=== PATIENT | female | born 1955 | race Caucasian/White ===

== ENCOUNTER → 2017-01-23 | Day surgery (SDC) | payer BC, OTHER ==
[~2017-01-23] MED LIST: ACETAMINOPHEN 1000 MG/100 ML VIAL IV ONE; BUPIVACAINE/EPINEPHRINE 0.5% PF 30 ML VIAL ONE; ISOSULFAN BLUE 50 MG/5 ML VIAL SQ ONE; LACTATED RINGER'S 1000 ML INJ 1,000 ML ONE; LIDOCAINE 1%/EPINEPHrine 1:100,000 SOLN 20 ML VIAL ONE; MIDAZOLAM HCL 2 MG/2 ML VIAL ONE; ONDANSETRON HCL 4 MG/2 ML VIAL IV PUSH ONE; PROPOFOL 200 MG/20 ML AMP IV ONE; ceFAZolin 2 GM PREMIX 50 ML ONE; ceFAZolin INJ 1,000 MG VIAL ONE
--- NOTE | 2017-01-23 17:43 | TN ---
cc: REBECA YUSUF MD, JOSEPH D. M.D. DATE OF SURGERY 01/23/2017 PREOPERATIVE DIAGNOSIS Left-sided breast cancer central quadrant. POSTOPERATIVE DIAGNOSIS Left-sided breast cancer central quadrant. PROCEDURES PERFORMED 1. Injection of Lymphazurin blue dye for lymphatic mapping left breast. 2. Needle-localized central quadrantectomy for clear margins for breast cancer. 3. Yeoman node identification of two sentinel nodes, number one ex vivo is 251; second one of 1700 and none were blue. 4. Some axillary heidy tissue and a third sentinel node with an ex vivo count of 54. 5. Application of intraoperative radiation device number 4 with intraoperative radiation. 6. Ultrasound confirmation of adequate tissue margins for intraoperative radiation. ANESTHESIA General. SURGEON Dr. Lindo. ROLLWAY WORKER PHAM [employer]onsec[employer] The SHEET METAL ASSEMBLER was present from beginning to the end of the case assisting in all portions of the procedure. It was necessary to have this individual in the room to assist in the above surgical procedure. The surgical procedure was assisted by the SHEET METAL ASSEMBLER. The SHEET METAL ASSEMBLER presence was necessary throughout the case for appropriate retraction, dissection, visualization, and resection of the important anatomical structures during the surgical procedure. The SHEET METAL ASSEMBLER was assisting throughout the entirety of the operation. The skill set of the SHEET METAL ASSEMBLER is medically and surgically necessary to safely complete the surgical procedure. During the surgical case, the operating room surgical garment fitter was working instrument table and passing instruments to the attending surgeon and SHEET METAL ASSEMBLER. The SHEET METAL ASSEMBLER was directly assisting the operating surgeon and involved in the technical aspects of the surgical case. INDICATIONS This is a pleasant female who is found to have a left-sided breast cancer. Plans were made for above. PROCEDURE DETAILS The patient taken to the operating room and placed in the supine position. After anesthesia, time-out was performed. The guidewire had been previously placed by radiology coursing from the 9 o'clock position going medial to lateral to the tip just underneath deep to the nipple-areolar complex. Because of the course of the guidewire it was felt that the nipple-areolar complex approach would result in adequate margins and cosmesis. We inject 6 mL of Lymphazurin blue dye along the course of needle track satnam. We then first identify, after prepping and draping, a hot spot in the axillary region. A curvilinear incision was made and we dissect down to the axillary region identifying two or actually three lymph nodes during the sentinel node identification. The first one with an ex vivo count of 251 which was not blue, a second one with 1700 which was not blue, and a lymph node with an ex vivo count of 54, no blue. There is some thickened axillary tissue that is removed as well. This is specimen three. After this was done no other counts were noted. No other blue nodes and no other lymphadenopathy is noted. The area is irrigated. Hemostasis assured. We then close the deep layer with 3-0 Vicryl. Skin with 4-0 Vicryl. We then we direct our attention to the breast on the left side. A curvilinear incision is made from approximately 10 o'clock position to the 7 o'clock position along the nipple-areolar complex in a curvilinear layer fashion. We dissect just about 0.5 cm under the skin, medially approximately 3 cm to the where the guidewire was coursing in the skin. It is clipped at the skin and then we dissect inferiorly and posteriorly and superiorly to dissect the guidewire off the breast tissue and then come wider near the edge of the wire to remove the specimen. It is marked superiorly with a short stitch and a long stitch placed laterally. Again the tip of the guidewire courses just in the middle of the breast posterior to the nipple-areolar complex somewhat in the central portion of the breast. Once this area was removed we labeled it with a short stitch placed superiorly, and a long stitch placed laterally. The tip of the guidewire it felt that had adequate margins, to just be assured I take some more tissue along the lateral margin and label it as such with a short stitch superiorly and long stitch laterally for orientation for the pathologist. After this was done we send this down and radiology states the guidewire clip and the area in question appears to have been removed. We then sized the cavity and feel that the number 4 intraoperative radiation therapy device will fit. This is confirmed with ultrasound to confirm adequate tissue margins at the anterior edge, superior, inferior and lateral. The medial was somewhat difficult because approaches from medial to lateral was the radiation therapy device. After preliminary evaluation with ultrasound seeing that this seems to be an adequate fit, this device was then connected to the radiation therapy device and draped sterilely. It was then placed in the breast cavity. Previously a pursestring suture was placed approximately 0.5 cm under the skin and this is brought up and tied in a pursestring fashion around the radiation therapy device. We then confirmed again with ultrasound adequate tissue margins circumferentially with no air pockets. Then Dr. Buck does the radiation therapy after we had placed the drapes and the lead protective gear over the radiation device. After adequate radiation therapy as directed by Dr. Buck, the radiation therapy device is removed and the sutures removed. The breast cavity is then irrigated, hemostasis assured. We close the deep layer with a 3-0 Vicryl and the skin is closed with a running 4-0 Vicryl. Steri-Strips were applied. Sterile bandage applied. The patient tolerated the procedure well and had no immediate postop complications. Osbaldo Lindo MD JDB/[id number] /5:05 PM /5:20 PM MTDSami
--- NOTE | 2017-01-25 09:25 | RADONCENDT ---
END OF TREATMENT SUMMARY PRIMARY REFERRING PHYSICIAN: Osbaldo Lindo CC: Osbaldo Lindo DIAGNOSIS: Primary C50.812 - Malignant neoplasm of overlapping sites of left female breast, Diagnosed 01/11/2017 (Active) PRESCRIPTION AND TREATMENT: 2000 cGy to surface of applicator- TREATED PLAN FRACTIONS AND DATES: Course: One fraction delivered on 01/24/2017 TOLERANCE: Patient completed treatment without complications. FOLLOW UP PLAN: Patient to be seen in 6 weeks. Luigi Griggs MD 01/25/2017 9:25:17 AM This report was verified and signed electronically [facility] [address] [facility] [place] [address] RADIATION ONCOLOGY END OF TREATMENT SUMMARY Date: 01/23/2017 Patient Name: Jennie Montanez Date of : 1955 Age: 61 Sex: Female
--- NOTE | 2017-01-25 09:25 | RADONCOP ---
OPERATIVE REPORT DATE OF SURGERY: 01/24/2017 REFERRING PHYSICIAN: Osbaldo Lindo PREOPERATIVE DIAGNOSIS: C50.812 - Malignant neoplasm of overlapping sites of left female breast, Diagnosed 01/11/2017 (Active) POSTOPERATIVE DIAGNOSIS: C50.812 - Malignant neoplasm of overlapping sites of left female breast, Diagnosed 01/11/2017 (Active) PROCEDURE: Intraoperative Radiation Therapy to the . SURGEON: Osbaldo Lindo ANESTHESIA: General ESTIMATED BLOOD LOSS: Minimal INDICATIONS: Patient is a 61 year old female presenting with . She has elected to receive targeted intraoperative radiation therapy to the . DESCRIPTION OF PROCEDURE: Patient was taken to the operating room and placed on the table in the supine position. Following induction of general anesthesia, the and arm were prepped and draped sterilely. Ultrasound was performed of the breast to document the location of the breast malignancy. The wound was prepared for intraoperative radiation therapy. Based on the diameter of the cavity, a 4.0cm radiation applicator was selected for the delivery of intraoperative radiation therapy. The applicator was then sterilely mounted onto the Intrabeam Stand. Retracting sutures were placed within the skin to be used to retract the skin edges away from the radiation source. The 4.0cm Radiation applicator was then sterilely inserted into the wound. The superficial purse-string suture was tied down. Ultrasound was performed of the breast to document conformity of the surgical margins and the distance from the applicator to the skin surface (1.02 cm). The retracting sutures were then secured and a moistened lap pad was placed on the skin surface, followed by an external radiation barrier. Intraoperative radiotherapy was then initiated by the Radiation Oncologist. Total treatment time was 25 minutes. Upon completion of the intraoperative radiotherapy treatment, the radiation applicator, purse-string sutures and retracting sutures were removed from the wound. The wound was once again irrigated. Hemostasis was confirmed. The patient was then turned back over to the surgeon, Osbaldo Lindo in stable condition for completion of surgical procedure. Luigi Griggs MD 01/25/2017 9:25:05 AM This report was verified and signed electronically [facility] [address] [place] [address] RADIATION ONCOLOGY OPERATIVE REPORT Date: 01/23/2017 Patient Name: Jennie Montanez
== END | disposition home or self-care (01) ==
LOC: ESDC 10:07
PROVIDERS: ATTEND Surgery
DX: C50.812 Malignant neoplasm of overlapping sites of left female breast (principal)
CPT/HCPCS: 00400; 01610; 19125; 19298; 38525; 38792; 77290; 77300; 77334; 77370; 77424; 88305; 88307; J0131; J0690; J2250; J2405; J3010; J7120; Q9968; 77469